=== PATIENT | female | born 1945 | race Caucasian/White ===

== ENCOUNTER 2018-10-12 19:49 | Emergency (ER) | payer MEDICARE ==
[~2018-10-12 19:49] MED LIST: ACET-66 PO; FERS325 PO; GLIP5POW MC; LOSA50TA64 PO; METF-444 PO; METO-391 PO
[2018-10-12] MEDS ORDERED: FLUORESCEIN SODIUM 1 STRIP STRIP ONE (21:17)
[2018-10-12] MEDS ORDERED: TETRACAINE HCL 0.5% 4 ML OPHTH SOLN OP ONE (21:21)
[2018-10-12] MEDS ORDERED: NA BORATE/BORIC AC/H2O/NACL 120 ML OPHTH IRRIG SOLN OP ONE (21:22)
[2018-10-12] MEDS ORDERED: ERYTHROMYCIN BASE 0.5% OPHTH OINT 1 GM TUBE ONE (21:25)
== END 2018-10-12 21:43 | disposition home or self-care (01) ==
LOC: EDH 19:49
DX: H11.32 Conjunctival hemorrhage, left eye (principal); S05.92XA Unspecified injury of left eye and orbit, initial encounter; Z90.49 Acquired absence of other specified parts of digestive tract; Z85.038 Personal history of other malignant neoplasm of large intestine; Z72.0 Tobacco use; X58.XXXA Exposure to other specified factors, initial encounter; Y93.89 Activity, other specified; Y92.89 Other specified places as the place of occurrence of the external cause; Y99.8 Other external cause status

== ENCOUNTER 2025-09-06 20:14 | Emergency (ER) | payer OTHER ==
[~2025-09-06] VITALS: Ht 154.9 cm; Wt 57.2 kg
[2025-09-06 21:17] LABS: RAPID GROUP A STREP negative (NEGATIVE)
[2025-09-06] MEDS: 0.9%NACL 1000ML 1,000 ML IV SCH (21:18)
[2025-09-06 21:23] LABS: IMMATURE GRANULOCYTE ABSOLUTE 0.05 K/uL (0-1); NUCLEATED RED BLOOD CELLS 0.0 % (0.0-0.19); PLATELET COUNT (AUTO) 185 K/uL (130-400); RED BLOOD CELL COUNT(AUTO) 5.15 MIL/uL (4.00-5.50); RED CELL DISTRIBUTION WIDTH 12.2 % (11.0-15.5); WHITE BLOOD COUNT (AUTO) 11.4 K/uL (4.8-10.8)
[2025-09-06 21:27] LABS: COVID19 (SARS ANTIGEN RAPID) PRESUMPTIVE NEGATIVE (NEGATIVE)
[2025-09-06 21:29] LABS: APPEARANCE,URINE CLOUDY (CLEAR); GLUCOSE, URINE (UA) 200 mg/dL (NEGATIVE); LEUKOCYTE ESTERASE ,URINE 75 Leu/uL (NEGATIVE); NITRATE,URINE NEGATIVE (NEGATIVE); OCCULT BLOOD,URINE LARGE (NEGATIVE)
[2025-09-06 21:32] LABS: ADD UA MICROSCOPIC YES
[2025-09-06 21:36] LABS: OTHER CASTS, URINE 1 /LPF (None Seen); SQUAMOUS EPITHELIAL CELL,UR MOD /HPF (0-2)
[2025-09-06 21:41] LABS: INFLUENZA TYPE B Negative For Type B (NEGATIVE)
[2025-09-06 21:43] LABS: INFLUENZA TYPE A Positive For Type A (NEGATIVE)
[2025-09-06 21:49] LABS: CREATININE 0.9 mg/dL (0.5-1.0); GLOMERULAR FILTR. RATE CALC 65.0 mL/min (>90); GLUCOSE,RANDOM 193.0 mg/dL (70-105); SODIUM SERUM 135.0 mmol/L (136-145); UREA NITROGEN, BLOOD 16.0 mg/dL (7-18)
[2025-09-06] MEDS: DICYCLOMINE HCL 20 MG TAB PO ONE (22:08)
--- NOTE | 2025-09-06 22:11 | HMCIMG ---
EXAM: CR Chest, 1 View. CLINICAL HISTORY: sepsis sob COMPARISON: None provided. FINDINGS: LUNGS: There is no mass, infiltrate, or acute pulmonary abnormality. PLEURAL SPACES: No pleural effusion or pneumothorax. MEDIASTINUM: The cardiomediastinal silhouette is within normal limits. BONES: No aggressive appearing osseous lesion seen. IMPRESSION: No acute cardiopulmonary pathology is evident. /[place]
[2025-09-06 22:15] VITALS: BP 154/86; PULSE 94; RESP 20; TEMP 98.9; O2SAT 98
--- NOTE | 2025-09-06 22:47 | ERN ---
General Chief Complaint: Fever Stated Complaint: FEVER Time Seen by MD: 20:17 History of Present Illness Initial Comments 80 yo F here for evaluation of cough congestion and generalized to the malaise x3-4 days. STates that she has also been having diarrhea. She is eating/drinking ok but due to her generalized myalgias she decided to come to ER for evaluation. No cp. No SOB. No dysuria. Allergies: Coded Allergies: No Known Drug Allergies (Verified Allergy, Unknown, 12/08/15) Home Meds Reported Medications Metoprolol Succinate (Metoprolol Succinate) 50 Mg Tab.er.24h, 50 MG PO BID, TAB 12/09/15 Losartan Potassium (Losartan Potassium) 50 Mg Tablet, 50 MG PO AM, TAB 12/09/15 Ferrous Sulfate (Ferrous Sulfate) 325 Mg Ectab, 325 MG PO BID, TAB.EC 12/08/15 Glipizide (Glipizide) 5 Gm Powder, 5 GM MC BID, #2 APPL 12/08/15 Acetaminophen (Tylenol) 500 Mg Tab, 500 MG PO 6 HOURS PRN for NEEDED FOR PAIN, #2 TAB 12/08/15 Metformin HCl (Metformin HCl) 500 Mg Tablet, 500 MG PO HS, #2 TAB 12/08/15 Metformin HCl (Metformin HCl) 500 Mg Tablet, 500 MG PO DAILY, #3 TAB 12/08/15 Past Medical History Past Medical History: Diabetes-Type II, Hypertension, Other Medical History Other: COLON CANCER Past Surgical History: Other Surgical History Other: COLON SX FOR CANCER Constitutional: (+) chills, (+) fever, (+) malaise, (+) weakness Musculoskeletal: (+) muscle pain Review of Systems: was completed, & the rest were negative. Physical Exam General Appearance: (+) no apparent distress Orientation: (+) alert, (+) oriented x 3 Head/Face Trauma: No Eye: bilateral eye normal inspection, bilateral eye PERRL, bilateral eye EOMI Ear, Nose, Throat: (+) hearing grossly normal, (+) normal ENT inspection, (+) moist mucous membraine Neck: (+) normal inspection Respiratory: (+) chest non-tender Heart: (+) regular; (-) murmur Gastrointestinal: (+) soft, (+) non-tender Results Laboratory and Microbiology Lab and Micro Result Laboratory Tests Test 09/06/25 20:26 09/06/25 20:52 09/06/25 20:58 Influenza Type A Antigen Positive For Type A Influenza Type B Antigen Negative For Type B SARS-CoV-2 Antigen (Rapid) PRESUMPTIVE NEGATIVE Group A Streptococcus Rapid negative (NEGATIVE) White Blood Count 11.4 K/uL (4.8-10.8) H Red Blood Count 5.15 MIL/uL (4.00-5.50) Hemoglobin 15.3 g/dL (12.0-16.0) Hematocrit 45.5 % (36-48) Mean Corpuscular Volume 88.3 fL (79-99) Mean Corpuscular Hemoglobin 29.7 pg (27.0-33.0) Mean Corpuscular Hemoglobin Concent 33.6 g/dL (32.0-36.0) Red Cell Distribution Width 12.2 % (11.0-15.5) Platelet Count 185 K/uL (130-400) Mean Platelet Volume 11.2 fL (7.5-10.5) H Immature Granulocyte % (Auto) 0.4 % (0-1) Neutrophils (%) (Auto) 89.2 % (40.0-77.0) H Lymphocytes (%) (Auto) 4.2 % (21.0-51.0) L Monocytes (%) (Auto) 6.0 % (3.0-13.0) Eosinophils (%) (Auto) 0.0 % (0.0-8.0) Basophils (%) (Auto) 0.2 % (0.0-5.0) Neutrophils # (Auto) 10.2 K/uL (1.8-7.7) H Lymphocytes # (Auto) 0.5 K/uL (1.0-4.8) L Monocytes # (Auto) 0.7 K/uL (0.1-1.0) Eosinophils # (Auto) 0.00 K/uL (0.00-0.70) Basophils # (Auto) 0.02 K/uL (0.00-0.20) Absolute Immature Granulocyte (auto 0.05 K/uL (0-1) Nucleated Red Blood Cells 0.0 % (0.0-0.19) White Cell Morphology Comment See comments Sodium Level 135 mmol/L (136-145) L Potassium Level 3.4 mmol/L (3.5-5.1) L Chloride Level 96 mmol/L (101-111) L Carbon Dioxide Level 27 mmol/L (21-32) Blood Urea Nitrogen 16 mg/dL (7-18) Creatinine 0.9 mg/dL (0.5-1.0) Glomerular Filtration Rate Calc 65 mL/min (>90) Random Glucose 193 mg/dL (70-105) H Lactic Acid Level 1.8 mmol/L (0.8-2.5) Total Calcium 9.0 mg/dL (8.5-10.1) Urine Color YELLOW (YELLOW) Urine Appearance CLOUDY (CLEAR) H Urine pH 6.0 (5.0-8.0) Urine Specific Hamill 1.027 (1.001-1.031) Urine Protein 200 mg/dL (NEGATIVE) H Urine Glucose (UA) 200 mg/dL (NEGATIVE) H Urine Ketones 60 mg/dL (NEGATIVE) H Urine Occult Blood LARGE (NEGATIVE) H Urine Nitrate NEGATIVE (NEGATIVE) Urine Bilirubin NEGATIVE mg/dL (NEGATIVE) Urine Urobilinogen 0.2 mg/dL (0.2-1.0) Urine Leukocyte Esterase 75 Kojo/uL (NEGATIVE) H Urine RBC 11-25 /HPF (0-1) H Urine WBC 11-25 /HPF (0-1) H Urine Squamous Epithelial Cells MOD /HPF (0-2) Urine Bacteria MOD /HPF (None Seen) Urine Other Casts 1 /LPF (None Seen) [facility] 80-year-old female here for evaluation of generalized malaise. Labs were drawn. Because she had had an elevated respiratory rate and white blood cell count and heart rate I initiated the sepsis protocol. However upon further evaluation, her elevated vitals for secondary to a viral infection that she tested positive for flu A. I had an extensive discussion with the patient regarding her vitals and offered her admission however she states that she does not want to stay in the hospital and would rather take medications at home. I will respect his decision and discharge her home with Chidi, and a Tamiflu Jose Manuel. She is advised to return to the emergency room if symptoms worsened. Her daughter who was at bedside agrees to discharge home. Although the daughter lives right next door she will come check on her mother regularly. Discharge [facility] Patient's prior external medical records from other ER visits were reviewed by me as indicated. Prior testing and results from previous visits were reviewed. Prior tests were taken into account with medical decision making and resource utilization, independent historian/historians were used to obtain complete medical history. I independently interpreted the test that were performed, results were reviewed by me and considered findings on radiology if ordered. Medical management and examination interpretation discussions were had by me with other qualified healthcare professionals as indicated for the patient's care. Labs and imaging reviewed with patient. All questions answered at this time. Patient advised to follow up with primary care physician in the next few days. Patient well-appearing, no acute distress. Vital signs stable. Will discharge at this time. ED Course Orders Procedure Category Date Status Time Rapid (Group A Strep) LAB 09/06/25 Complete 20:16 Covid19 (Sars Antigen LAB 09/06/25 Complete Rapid) 20:16 Influenza Type A & B, LAB 09/06/25 Complete Rapid 20:16 Cbc With Differential LAB 09/06/25 Complete 20:17 Basic Metabolic Panel LAB 09/06/25 Complete 20:17 Lactic Acid LAB 09/06/25 Complete 20:17 Urinalysis Profile LAB 09/06/25 Complete 20:17 Acetaminophen 325 Tab PHA 09/06/25 Complete (Tylenol 325mg Tab 20:30 Blood Cult GARY 09/06/25 Logged 20:44 0.9%Nacl 1000ml (Ns PHA 09/06/25 In Process 1000ml) 21:00 Chest 1vw RAD 09/06/25 Resulted 21:07 Culture Urine GARY 09/06/25 In Process 21:32 Ceftriaxone 1g Vial PHA 09/06/25 Complete (Rocephine 1g Inj) 22:00 Dicyclomine Hcl PHA 09/06/25 Complete (Bentyl 20mg Tab) 22:00 Ondansetron 4mg Inj PHA 09/06/25 Complete (Zofran 4mg Inj) 22:00 Potassium Chloride PHA 09/06/25 Complete 20meq Er (K-Dur/Klor- 22:30 Current Medications Medications (Trade) Dose Ordered Sig/Sudhakar Route PRN Reason Start Time Stop Time Status Last Admin Dose Admin Acetaminophen (TYLenol 325MG TAB) 650 mg ONCE ONCE PO 09/06/25 20:30 09/06/25 20:31 DC 09/06/25 20:43 Ceftriaxone Sodium (ROCEphine 1G INJ) 1 gm ONCE ONCE IVPB 09/06/25 22:00 09/06/25 22:01 DC 09/06/25 22:08 Dicyclomine HCl (Bentyl 20mg Tab) 20 mg ONCE ONCE PO 09/06/25 22:00 09/06/25 22:01 DC 09/06/25 22:08 Ondansetron HCl (zoFRAN 4MG INJ) 4 mg ONCE ONCE IV 09/06/25 22:00 09/06/25 22:01 DC 09/06/25 22:08 Potassium Chloride (K-Dur/Klor-Con 20meq) 40 meq ONCE ONCE PO 09/06/25 22:30 09/06/25 22:31 DC Sodium Chloride 1,000 ml @ 0 mls/hr Q0M IV 09/06/25 21:00 10/06/25 20:59 09/06/25 21:18 Vital Signs Date Time Temp Pulse Resp B/P (MAP) Pulse Ox O2 Delivery O2 Flow Rate FiO2 09/06/25 22:15 99.0 94 20 154/86 98 Room Air* 0 09/06/25 20:51 99.9 104 18 164/96 96 Room Air* 0 09/06/25 20:20 99.9 104 20 167/96 95 Room Air 0 DX & DISP Disposition: Discharge Departure Impression: Primary Impression: Influenza A Additional Impressions: Gastroenteritis, Hypokalemia, Hyponatremia Condition: Stable Scripts Oseltamivir Phosphate (Tamiflu) 75 Mg Cap 1 CAP PO BID for 5 Days, #10 CAP 0 Refills Prov: FREDDIE TAYLOR MD 09/06/25 Ondansetron (Ondansetron Odt) 4 Mg Tab.rapdis 1 TAB PO Q6HPRN PRN for nausea/vomiting for 4 Days, #16 TAB 0 Refills Prov: FREDDIE TAYLOR MD 09/06/25 Referrals: SELF,REFERRAL (PCP) FREDDIE TAYLOR MD Sep 06, 2025 22:47
[2025-09-06] MEDS: PoTASSium chloRIDE 20MEQ ER 20 MEQ ERTAB PO ONE (22:58)
== END 2025-09-06 23:01 | disposition home or self-care (01) ==
LOC: EDH 20:14
DX: J10.1 Influenza due to other identified influenza virus with other respiratory manifestations (principal); K52.9 Noninfective gastroenteritis and colitis, unspecified; E87.1 Hypo-osmolality and hyponatremia; E87.6 Hypokalemia; I10 Essential (primary) hypertension; E11.9 Type 2 diabetes mellitus without complications; Z79.84 Long term (current) use of oral hypoglycemic drugs; Z79.899 Other long term (current) drug therapy; Z85.038 Personal history of other malignant neoplasm of large intestine; Z20.822 Contact with and (suspected) exposure to COVID-19
CPT/HCPCS: 99283; 96374; 71045; 96375; 87426; 80048; 85025; 87040 ×2; 87086; 87880; 87804 ×2; 83605; 81001; 36415; J0696; J2405